=== PATIENT | female | born 1990 | race Caucasian/White ===

== ENCOUNTER 2017-06-01 13:29 | Emergency (ER) | payer OTHER ==
[~2017-06-01] VITALS: Ht 157.5 cm; Wt 54.4 kg
--- NOTE | 2017-06-01 13:32 | NUR ---
PT BIBRA FROM HOME TO ER BED 12. C/O RLQ ABDOMINAL PAIN R/T LOWER BACK.SUDDEN ONSET THIS AM. CONSTANT PAIN AT THIS TIME. NAUSEATED. NO VOMITING. NO PAIN UPON URINATION.
--- NOTE | 2017-06-01 13:44 | NUR ---
ARAM CHEN AT BEDSIDE FOR EVAL.
[2017-06-01 13:59] LABS: BASOPHILS # (AUTO) 0.1 /CMM (0.0-0.2); BASOPHILS % (AUTO) 0.6 % (0.0-2.0); EOSINOPHILS # (AUTO) 0.4 /CMM (0.0-0.7); EOSINOPHILS % (AUTO) 2.1 % (0.0-6.0); HEMATOCRIT 42 % (33-45); HEMOGLOBIN 13.8 g/dL (11.5-14.8); LYMPHOCYTES # (AUTO) 1.9 /CMM (0.8-4.8); LYMPHOCYTES % (AUTO) 9.4 % (20.0-44.0); MEAN CORPUSCULAR HEMOGLOBIN 29 PG (26.0-33.0); MEAN CORPUSCULAR HGB CONC 33 g/dl (31.0-36.0); MEAN CORPUSCULAR VOLUME 89 fL (82-100); MONOCYTES # (AUTO) 1.2 /CMM (0.1-1.30); MONOCYTES % (AUTO) 5.8 % (2.0-12.0); NEUTROPHILS # (AUTO) 16.2 /CMM (1.8-8.9); NEUTROPHILS % (AUTO) 82.1 % (43.0-81.0); PLATELET COUNT (AUTO) 355 /CMM (150-450); RED BLOOD CELL COUNT(AUTO) 4.69 MIL/uL (4.0-5.2); WHITE BLOOD COUNT (AUTO) 19.8 K/uL (4.3-11.0)
[2017-06-01 14:01] LABS: APPEARANCE,URINE Clear (CLEAR); BILIRUBIN,URINE SMALL (NEGATIVE); BLOOD, URINE Large Ery/uL (NEGATIVE); COLOR,URINE Yellow (YELLOW); KETONES,URINE Negative (NEGATIVE); LEUKOCYTE ESTERASE ,URINE Negative (NEGATIVE); NITRITE, URINE Negative (NEGATIVE); PH,URINE 5.5 (5.0-8.0); PROTEIN,URINE 30 mg/dl (NEGATIVE); UGLUCOSE Negative (NEGATIVE); UROBILINOGEN,URINE 0.2 EU/dL (0.2)
[2017-06-01] MEDS ORDERED: ONDANSETRON HCL/PF 4 MG/2 ML VIAL ONE (14:06)
[2017-06-01] MEDS ORDERED: FENTANYL PF 100MCG/2ML AMPUL ONE ×2 (14:07→15:19)
[2017-06-01 14:11] LABS: RBC,URINE TOO NUMEROUS TO COUN /HPF (0-2)
[2017-06-01 14:12] LABS: BACTERIA,URINE Few /HPF (None Seen); SQUAMOUS EPITHELIAL CELL,UR Few /HPF (None Seen); WBC,URINE 0-2 /HPF (0-3)
[2017-06-01 14:13] LABS: BILIRUBIN,DIRECT 0.1 mg/dL (0.0-0.2); BILIRUBIN,TOTAL 0.4 mg/dL (0.2-1.0); CALCIUM, SERUM 9.3 mg/dL (8.5-10.1); POTASSIUM 3.7 mmol/L (3.5-5.1); TOTAL PROTEIN, SERUM 7.5 g/dL (6.4-8.2)
[2017-06-01] MEDS: IV NS 0.9% 1,000 ML BAG IV ONE (14:18)
[2017-06-01] MEDS: ONDANSETRON HCL/PF 4 MG/2 ML VIAL IVP ONE (14:19)
[2017-06-01] MEDS: FENTANYL PF 100MCG/2ML AMPUL IV ONE ×2 (14:25→15:24)
[2017-06-01] MEDS ORDERED: FENTANYL PF 100MCG/2ML AMPUL IV ONE (14:30)
--- NOTE | 2017-06-01 14:42 | NUR ---
PT TO RADIOLOGY FOR ABDOMINAL CT SCAN [facility].
[2017-06-01] MEDS ORDERED: KETOROLAC TROMETHAMINE INJ 30 MG/ML VIAL ONE (16:05)
[2017-06-01] MEDS ORDERED: TAMSULOSIN 0.4 MG CAP.SR.24H ONE (16:06)
[2017-06-01] MEDS: KETOROLAC TROMETHAMINE INJ 30 MG/ML VIAL IV ONE (16:10)
[2017-06-01] MEDS: TAMSULOSIN 0.4 MG CAP.SR.24H PO ONE (16:14)
--- NOTE | 2017-06-01 17:00 | NUR ---
Patient discharged to home in stable condition. Written and verbal after care instructions given. Patient verbalizes understanding of instruction.IV removed. Catheter intact and site benign. Pressure and 4x4 applied to site. No bleeding noted.
[2017-06-01 17:01] VITALS: BP 130/77
== END 2017-06-01 17:02 | disposition home or self-care (01) ==
LOC: ER 13:32
DX: N20.0 Calculus of kidney (principal); R16.0 Hepatomegaly, not elsewhere classified; D72.829 Elevated white blood cell count, unspecified; F17.200 Nicotine dependence, unspecified, uncomplicated
CPT/HCPCS: 36415; 80048-TC; 80076-TC; 81000-TC; 83690-TC; 84703-TC; 85025-TC; A4606; J1885; J2405; J3010; J7030; Z7610